=== PATIENT | female | born 1990 | race Caucasian/White ===

== ENCOUNTER 2017-10-07 01:49 | Emergency (ER) | payer BC ==
[2017-10-07] MEDS ORDERED: Ondansetron 4 MG Tab.DIS PO ONE (01:50)
[2017-10-07] MEDS ORDERED: Sodium Chloride 0.9% 1,000 ML IV ONE (02:03)
[2017-10-07] MEDS ORDERED: Ondansetron 4 MG/2 ML SDV IV ONE (02:30)
[2017-10-07 02:40] LABS: CHLORIDE,CL 106 mmol/L (101-111); SODIUM,NA 138 mmol/L (135-145)
--- NOTE | 2017-10-07 02:41 | EDM.PDOC ---
ED HPI GENERAL MEDICAL PROBLEM - General Chief Complaint: Abdominal Pain Stated Complaint: STOMACH PAIN FOR 5 DAYS [id number] Time Seen by Provider: 10/07/17 02:00 Source of Information: Reports: Patient History Limitations: Reports: No Limitations - History of Present Illness INITIAL COMMENTS - FREE TEXT/NARRATIVE: C/O epigastric upper right abdominal pain since Tuesday, nausea no vomiting, poor appetite, not eating past few days, taking fluids. No BM since Tuesday. Hx cholecystectomy 10 years ago. Notes multiple GI studies over past few years. Pain similar to previous episodes. Intermittent fever and chills. No urinary complaints. Has tried tums with some relief. Right Upper Abdomen Pain Score (Numeric/FACES): 9 - Related Data Allergies Allergy/AdvReac Type Severity Reaction Status Date / Time No Known Allergies Allergy Verified 07/01/15 18:45 Home Meds: Home Meds . [No Known Home Meds] 07/01/15 [History] Past Medical History Respiratory History: Reports: Bronchitis, Recurrent Social & Family History - Family History Family Medical History: Noncontributory - Tobacco Use Smoking Status *Q: Former Smoker Years of Tobacco use: 1 Used Tobacco, but Quit: Yes Month/Year Tobacco Last Used: 2 years ago Second Hand Smoke Exposure: Yes - Caffeine Use Caffeine Use: Reports: Soda - Alcohol Use Days Per Week of Alcohol Use: 2 Number of Drinks Per Day: 10 Total Drinks Per Week: 20 - Recreational Drug Use Recreational Drug Use: No Drug Use in Last 12 Months: No ED ROS GENERAL - Review of Systems Review Of Systems: ROS reveals no pertinent complaints other than HPI. ED EXAM, GI/ABD - Physical Exam Exam: See Below Exam Limited By: No Limitations General Appearance: Alert, No Apparent Distress Eyes: Bilateral: Normal Appearance Ears: Normal External Exam, Normal TMs Nose: Normal Inspection Throat/Mouth: Normal Inspection Head: Atraumatic, Normocephalic Neck: Normal Inspection Respiratory/Chest: No Respiratory Distress Cardiovascular: Normal Peripheral Pulses, Regular Rate, Rhythm GI/Abdominal Exam: Normal Bowel Sounds, Soft, Tender (mild epigastric) Extremities: Normal Inspection Neurological: Alert, Oriented, Normal Cognition Psychiatric: Flat Affect Skin Exam: Warm, Dry, Intact, Normal Color Course - Vital Signs Last Recorded V/S: Last Vital Signs Temp 97.3 F 10/07/17 01:56 Pulse 73 10/07/17 01:56 Resp 18 04/13/18 01:56 BP 120/65 10/07/17 01:56 Pulse Ox 97 10/07/17 01:56 - Orders/Labs/Meds Orders: Active Orders 24 hr Category Date Time Status Abdomen Pelvis w Cont [CT] Urgent Exams 10/07/17 02:59 Taken Labs: Laboratory Tests 10/07/17 10/07/17 10/07/17 Range/Units 01:54 01:54 02:15 WBC 9.6 (5.0-10.0) 10^3/uL RBC 4.47 (4.2-5.4) 10^6/uL Hgb 11.1 L (12.0-16.0) g/dL Hct 35.2 L (37.0-47.0) % MCV 78.7 L D (80-100) fL MCH 24.8 L (27.0-34.0) pg MCHC 31.5 L (33.0-35.0) g/dL Plt Count 215 (150-450) 10^3/uL Neut % (Auto) 58.5 (42.2-75.2) % Lymph % (Auto) 29.1 (20.5-50.1) % [place] % (Auto) 7.6 (2-8) % Eos % (Auto) 4.3 H (1.0-3.0) % Baso % (Auto) 0.5 (0.0-1.0) % Sodium (135-145) mmol/L Potassium (3.6-5.0) mmol/L Chloride (101-111) mmol/L Carbon Dioxide (21.0-31.0) mmol/L Anion Gap BUN (7-18) mg/dL Creatinine (0.6-1.3) mg/dL Est Cr Clr Drug Dosing mL/min Estimated GFR (MDRD) BUN/Creatinine Ratio Glucose (74-105) mg/dL Calcium (8.4-10.2) mg/dl Total Bilirubin (0.2-1.0) mg/dL AST (10-42) IU/L ALT (10-60) IU/L Alkaline Phosphatase (42-121) IU/L Total Protein (6.7-8.2) g/dl Albumin (3.2-5.5) g/dl Globulin Albumin/Globulin Ratio Amylase (28-100) U/L Lipase (22-51) U/L Urine Color Light yellow (YELLOW) Urine Appearance Clear (CLEAR) Urine pH 5.5 (5.0-9.0) Ur Specific [place] <= 1.005 (1.005-1.030) Urine Protein Negative (NEGATIVE) Urine Glucose (UA) Negative (NEGATIVE) Urine Ketones Negative (NEGATIVE) Urine Occult Blood Negative (NEGATIVE) Urine Nitrite Negative (NEGATIVE) Urine Bilirubin Negative (NEGATIVE) Urine Urobilinogen 0.2 (0.2-1.0) mg/dL Ur Leukocyte Esterase Negative (NEGATIVE) Urine RBC 0-5 /HPF Urine WBC 0-5 (0-5/HPF) /HPF Ur Epithelial Cells Rare /HPF Urine Bacteria Rare (0-FEW/HPF) /HPF Urine HCG, Qual Negative 10/07/17 Range/Units 02:15 WBC (5.0-10.0) 10^3/uL RBC (4.2-5.4) 10^6/uL Hgb (12.0-16.0) g/dL Hct (37.0-47.0) % MCV (80-100) fL MCH (27.0-34.0) pg MCHC (33.0-35.0) g/dL Plt Count (150-450) 10^3/uL Neut % (Auto) (42.2-75.2) % Lymph % (Auto) (20.5-50.1) % [place] % (Auto) (2-8) % Eos % (Auto) (1.0-3.0) % Baso % (Auto) (0.0-1.0) % Sodium 138 (135-145) mmol/L Potassium 3.8 (3.6-5.0) mmol/L Chloride 106 (101-111) mmol/L Carbon Dioxide 24.0 (21.0-31.0) mmol/L Anion Gap 11.8 BUN 9 (7-18) mg/dL Creatinine 0.5 L (0.6-1.3) mg/dL Est Cr Clr Drug Dosing 161.02 mL/min Estimated GFR (MDRD) > 60 BUN/Creatinine Ratio 18.00 Glucose 86 (74-105) mg/dL Calcium 9.1 (8.4-10.2) mg/dl Total Bilirubin 0.4 (0.2-1.0) mg/dL AST 18 (10-42) IU/L ALT 15 (10-60) IU/L Alkaline Phosphatase 66 (42-121) IU/L Total Protein 7.8 (6.7-8.2) g/dl Albumin 4.3 (3.2-5.5) g/dl Globulin 3.5 Albumin/Globulin Ratio 1.23 Amylase 41 (28-100) U/L Lipase 23 (22-51) U/L Urine Color (YELLOW) Urine Appearance (CLEAR) Urine pH (5.0-9.0) Ur Specific [place] (1.005-1.030) Urine Protein (NEGATIVE) Urine Glucose (UA) (NEGATIVE) Urine Ketones (NEGATIVE) Urine Occult Blood (NEGATIVE) Urine Nitrite (NEGATIVE) Urine Bilirubin (NEGATIVE) Urine Urobilinogen (0.2-1.0) mg/dL Ur Leukocyte Esterase (NEGATIVE) Urine RBC /HPF Urine WBC (0-5/HPF) /HPF Ur Epithelial Cells /HPF Urine Bacteria (0-FEW/HPF) /HPF Urine HCG, Qual Meds: Medications Discontinued Medications Generic Name Dose Route Start Last Admin Trade Name Freq PRN Reason Stop Dose Admin Famotidine 20 mg 10/07/17 02:30 10/07/17 02:36 Pepcid IVPUSH 10/07/17 02:31 20 mg ONETIME ONE Administration Sodium Chloride 1,000 mls @ 999 mls/hr 10/07/17 02:03 10/07/17 02:23 Normal Saline IV 10/07/17 03:03 999 mls/hr .BOLUS ONE Administration Iopamidol 100 ml 10/07/17 03:01 Isovue-300 (61%) IVPUSH 10/07/17 03:02 ONETIME ONE Ondansetron HCl 4 mg 10/07/17 02:30 10/07/17 02:35 Zofran IV 10/07/17 02:31 4 mg ONETIME ONE Administration - Radiology Interpretation Free Text/Narrative:: CT abdomen negative with exception of 17mm left ovarian cyst Departure - Departure Time of Disposition: 04:21 Disposition: Home, Self-Care 01 Condition: Good Clinical Impression: Nausea Abdominal pain Qualifiers: Abdominal location: right upper quadrant Qualified Code(s): R10.11 - Right upper quadrant pain - Discharge Information Instructions: Nausea, Adult Forms: ED Department Discharge Additional Instructions: zofran ODT 4m dior every 4 hours as needed for nausea light diet follow up with primary care if no improvement bland diet OTC zantac 150mg 2 times daily - My Orders Last 24 Hours: My Active Orders 10/07/17 02:59 Abdomen Pelvis w Cont [CT] Urgent - Assessment/Plan Last 24 Hours: My Active Orders 10/07/17 02:59 Abdomen Pelvis w Cont [CT] Urgent
[2017-10-07] MEDS ORDERED: Iopamidol 612 MG/ML 100 ML Bottle IVPUSH ONE (03:01)
[2017-10-07] MEDS ORDERED: Ondansetron 4 MG Tab.DIS ONE (04:27)
[2017-10-07 04:41] VITALS: BP 124/74
== END 2017-10-07 04:36 | disposition home or self-care (01) ==
LOC: DL.ED 01:49
DX: R10.11 Right upper quadrant pain (principal); R11.0 Nausea; Z87.891 Personal history of nicotine dependence
CPT/HCPCS: 36415; 74177; 80053; 81001; 81025; 82150; 83690; 85025; 96365; 96375; 99284; J2405; J3490; J7030; Q9967; A9270-GY

== ENCOUNTER 2018-01-04 00:36 | Emergency (ER) | payer BC ==
[2018-01-04 00:45] VITALS: BP 130/77
[2018-01-04] MEDS ORDERED: Ibuprofen 600 MG Tab PO ONE (02:06)
--- NOTE | 2018-01-04 02:06 | EDM.PDOC ---
ED HPI GENERAL MEDICAL PROBLEM - General Chief Complaint: Lower Extremity Injury/Pain Stated Complaint: R ANKLE PAIN [id number] Time Seen by Provider: 01/04/18 01:59 Source of Information: Reports: Patient History Limitations: Reports: No Limitations - History of Present Illness INITIAL COMMENTS - FREE TEXT/NARRATIVE: Original injury in June and was seen in clinic by Dr. Cabello, told if not improving to be seen in August, did not follow up. This week more discomfort, no new injury. No tylenol or ibuprofen today. 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 [No Known Home Meds] 07/01/15 [History] Past Medical History HEENT History: Reports: None Cardiovascular History: Reports: None Respiratory History: Reports: Bronchitis, Recurrent Gastrointestinal History: Reports: None Genitourinary History: Reports: None COMPTOMETRIST History: Reports: None Musculoskeletal History: Reports: None Neurological History: Reports: None Psychiatric History: Reports: None Endocrine/Metabolic History: Reports: None Hematologic History: Reports: None Immunologic History: Reports: None Oncologic (Cancer) History: Reports: None Dermatologic History: Reports: None - Past Surgical History GI Surgical History: Reports: Cholecystectomy Social & Family History - Family History Family Medical History: Noncontributory - Tobacco Use Smoking Status *Q: Never Smoker - Caffeine Use Caffeine Use: Reports: Soda - Recreational Drug Use Recreational Drug Use: No Review of Systems - Review of Systems Review Of Systems: ROS reveals no pertinent complaints other than HPI. ED EXAM, GENERAL - Physical Exam Exam: See Below Exam Limited By: No Limitations General Appearance: Alert, No Apparent Distress Eye Exam: Bilateral Eye: EOMI Ears: Hearing Grossly Normal Throat/Mouth: Normal Voice Respiratory/Chest: No Respiratory Distress Cardiovascular: Normal Peripheral Pulses, Regular Rate, Rhythm Extremities: Normal Range of Motion, Other (mild lateral ankle swelling, full ROM minimal tenderness with inversion. Mild intermittent crepitus lateral posterior ankle). No: Limited Range of Motion Neurological: Alert, Oriented, Normal Cognition Psychiatric: Normal Affect Skin Exam: Dry, Intact. No: Ecchymosis Course - Vital Signs Last Recorded V/S: Last Vital Signs Temp 98 F 01/04/18 00:41 Pulse 75 01/04/18 00:41 Resp 18 01/04/18 00:41 BP 130/77 01/04/18 00:41 Pulse Ox 98 01/04/18 00:41 - Orders/Labs/Meds Meds: Medications Discontinued Medications Generic Name Dose Route Start Last Admin Trade Name Janki PRN Reason Stop Dose Admin Ibuprofen 600 mg 01/04/18 02:06 01/04/18 02:11 Motrin PO 01/04/18 02:07 600 mg ONETIME ONE Administration Departure - Departure Time of Disposition: 02:07 Disposition: Home, Self-Care 01 Condition: Good Clinical Impression: Ankle pain, left Qualifiers: Chronicity: chronic Qualified Code(s): M25.572 - Pain in left ankle and joints of left foot - Discharge Information Instructions: Ankle Pain Referrals: PCP,Unobtain [Primary Care Provider] - Forms: ED Department Discharge Additional Instructions: ibuprofen 600mg alternate with tylenol 650mg every 4 hours as needed for discomfort clinic followup this week with Dr. Irineo crane when possible [place]
== END 2018-01-04 02:17 | disposition home or self-care (01) ==
LOC: DL.ED 00:36
DX: M25.572 Pain in left ankle and joints of left foot (principal)
CPT/HCPCS: 99283; A9270

== ENCOUNTER 2018-12-02 23:12 | Emergency (ER) | payer BC, MEDICAID ==
[2018-12-02 23:20] VITALS: BP 132/82
[2018-12-02] MEDS ORDERED: Sodium Chloride 0.9% 1,000 ML IV ONE (23:49)
--- NOTE | 2018-12-02 23:56 | EDM.PDOC ---
ED HPI GENERAL MEDICAL PROBLEM - General Chief Complaint: Chest Pain Stated Complaint: SOB/CHEST PAINS/THROWING UP [id number] Time Seen by Provider: 12/02/18 23:51 Source of Information: Reports: Patient History Limitations: Reports: No Limitations - History of Present Illness INITIAL COMMENTS - FREE TEXT/NARRATIVE: This 28 yo female patient reports to the ED with a 3 day history of lightheadedness, nausea/vomiting that started this morning and chest pain that started this morning. The patient reports her chest pain feels like someone is sitting on her chest. The patient reports she is currently 32 weeks with her first . The patient reports she has had a non-eventful other than being low in iron. The patient reports she did see her primary care provider yesterday, but did not mention any of her current symptoms. The patient reports she has had a cough for the past 3-4 days producing some phlegm. The patient reports she has been having some abdominal cramping and what she believes to be jackie hics contractions. The patient reports she vomited 5 times today so far. Onset: Today (chest pain, nausea and vomiting) Duration: Day(s): (3 days of increased cough, intermittent dizziness) Location: Reports: Chest, Abdomen Quality: Reports: Pressure Severity: Moderate Improves with: Reports: None Worsens with: Reports: None Associated Symptoms: Reports: Chest Pain, Cough, Nausea/Vomiting Chest Pain Score (Numeric/FACES): 8 - Related Data Allergies Allergy/AdvReac Type Severity Reaction Status Date / Time No Known Allergies Allergy Verified 12/02/18 23:18 Home Meds: Home Meds Comb No.42/Folic Acid [Prena1 Chew Tablet] 1 tab PO DAILY 12/02/18 [ History] Past Medical History HEENT History: Reports: None Cardiovascular History: Reports: None Respiratory History: Reports: Bronchitis, Recurrent Gastrointestinal History: Reports: None Genitourinary History: Reports: None 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 Musculoskeletal History: Reports: None Neurological History: Reports: None Psychiatric History: Reports: None Endocrine/Metabolic History: Reports: None Hematologic History: Reports: None Immunologic History: Reports: None Oncologic (Cancer) History: Reports: None Dermatologic History: Reports: None - Past Surgical History HEENT Surgical History: Reports: Oral Surgery GI Surgical History: Reports: Cholecystectomy Social & Family History - Family History Family Medical History: Noncontributory - Tobacco Use Smoking Status *Q: Never Smoker - Caffeine Use Caffeine Use: Reports: Soda - Recreational Drug Use Recreational Drug Use: No ED ROS GENERAL - Review of Systems Review Of Systems: ROS reveals no pertinent complaints other than HPI. ED EXAM, GENERAL - Physical Exam Exam: See Below Exam Limited By: No Limitations General Appearance: Alert, WD/WN, Mild Distress Eye Exam: Bilateral Eye: EOMI, Normal Inspection, PERRL Ears: Normal External Exam, Normal Canal, Hearing Grossly Normal, Normal TMs Nose: Normal Inspection, Normal Mucosa, No Blood Throat/Mouth: Normal Inspection, Normal Lips, Normal Teeth, Normal Gums, Normal Oropharynx, Normal Voice, No Airway Compromise Head: Atraumatic, Normocephalic Neck: Normal Inspection, Supple, Non-Tender, Full Range of Motion Respiratory/Chest: No Respiratory Distress, Lungs Clear, Normal Breath Sounds, No Accessory Muscle Use, Chest Non-Tender Cardiovascular: Normal Peripheral Pulses, Regular Rate, Rhythm, No Edema, No Gallop, No JVD, No Murmur, No Rub GI/Abdominal: Normal Bowel Sounds, Soft, Non-Tender, No Organomegaly, No Abnormal Bruit, No Mass (Female) Exam: Deferred Rectal (Female) Exam: Deferred Back Exam: Normal Inspection, Full Range of Motion, NT Extremities: Normal Inspection, Normal Range of Motion, Non-Tender, Normal Capillary Refill, No Pedal Edema Neurological: Alert, Oriented, CN II-XII Intact, Normal Cognition, Normal Gait, Normal Reflexes, No Motor/Sensory Deficits Psychiatric: Normal Affect, Normal Mood Skin Exam: Warm, Dry, Intact, Normal Color, No Rash Lymphatic: No Adenopathy Course - Vital Signs Last Recorded V/S: Last Vital Signs Temp 36.7 C 12/02/18 23:18 Pulse 68 12/02/18 23:18 Resp 19 12/02/18 23:18 BP 132/82 12/02/18 23:18 Pulse Ox 99 12/02/18 23:18 - Orders/Labs/Meds Orders: Active Orders 24 hr Category Date Time Status EKG Documentation Completion [RC] URGENT Care 12/02/18 23:50 Active CULTURE URINE [RM] Routine Lab 12/02/18 23:53 Received Labs: Laboratory Tests 12/02/18 12/02/18 12/02/18 Range/Units 23:26 23:26 23:53 WBC 12.5 H (5.0-10.0) 10^3/uL RBC 3.60 L (4.2-5.4) 10^6/uL Hgb 10.1 L (12.0-16.0) g/dL Hct 30.8 L (37.0-47.0) % MCV 85.6 D (80-100) fL MCH 28.1 (27.0-34.0) pg MCHC 32.8 L (33.0-35.0) g/dL Plt Count 199 (150-450) 10^3/uL Neut % (Auto) 70.5 (42.2-75.2) % Lymph % (Auto) 17.9 L (20.5-50.1) % [place] % (Auto) 9.6 H (2-8) % Eos % (Auto) 1.8 (1.0-3.0) % Baso % (Auto) 0.2 (0.0-1.0) % Add Manual Diff Yes Neutrophils % (Manual) 67 (42-75) % Band Neutrophils % 4 % Lymphocytes % (Manual) 22 (20-50) % Monocytes % (Manual) 6 (2-8) % Eosinophils % (Manual) 1 (1-3) % Sodium 134 L (135-145) mmol/L Potassium 3.7 (3.6-5.0) mmol/L Chloride 106 (101-111) mmol/L Carbon Dioxide 19.0 L (21.0-31.0) mmol/L Anion Gap 12.7 BUN 7 (7-18) mg/dL Creatinine 0.4 L (0.6-1.3) mg/dL Est Cr Clr Drug Dosing 199.52 mL/min Estimated GFR (MDRD) > 60 BUN/Creatinine Ratio 17.50 Glucose 80 (74-105) mg/dL Calcium 8.7 (8.4-10.2) mg/dl Total Bilirubin 0.3 (0.2-1.0) mg/dL AST 22 (10-42) IU/L ALT 14 (10-60) IU/L Alkaline Phosphatase 91 (42-121) IU/L Troponin I < 0.02 (0.00-0.02) ng/ml Total Protein 6.9 (6.7-8.2) g/dl Albumin 2.8 L (3.2-5.5) g/dl Globulin 4.1 Albumin/Globulin Ratio 0.68 Urine Color Yellow (YELLOW) Urine Appearance Cloudy (CLEAR) Urine pH 8.5 (5.0-9.0) Ur Specific [place] 1.015 (1.005-1.030) Urine Protein Negative (NEGATIVE) Urine Glucose (UA) Negative (NEGATIVE) Urine Ketones Negative (NEGATIVE) Urine Occult Blood Trace-intact H (NEGATIVE) Urine Nitrite Negative (NEGATIVE) Urine Bilirubin Negative (NEGATIVE) Urine Urobilinogen 0.2 (0.2-1.0) mg/dL Ur Leukocyte Esterase Moderate H (NEGATIVE) Urine RBC 5-10 H /HPF Urine WBC >100 H (0-5/HPF) /HPF Ur Epithelial Cells Moderate H (NOT SEEN) /HPF Amorphous Sediment Few (NOT SEEN) /HPF Urine Bacteria Many H (0-FEW/HPF) /HPF Urine Mucus Rare (NOT SEEN) /LPF Meds: Medications Discontinued Medications Generic Name Dose Route Start Last Admin Trade Name Rileyq PRN Reason Stop Dose Admin Sodium Chloride 1,000 mls @ 999 mls/hr 12/02/18 23:49 12/02/18 23:55 Normal Saline IV 12/03/18 00:49 999 mls/hr .BOLUS ONE Administration Ondansetron HCl 4 mg 12/03/18 00:03 12/03/18 00:09 Zofran IV 12/03/18 00:04 4 mg ONETIME ONE Administration Departure - Departure Time of Disposition: 01:19 Disposition: Home, Self-Care 01 Condition: Fair Clinical Impression: Nausea and vomiting during , Nonspecific chest pain - Discharge Information *PRESCRIPTION DRUG MONITORING PROGRAM REVIEWED*: Not Applicable *COPY OF PRESCRIPTION DRUG MONITORING REPORT IN PATIENT SHAYY: Not Applicable Referrals: Nolvia Kaminski MD [Physician] - Forms: ED Department Discharge Care Plan Goals: The patient was advised of the examination, lab, and EKG results while in the emergency department. The patient was sent to OB for continued evaluation due to being in her 32nd week of her current . - My Orders Last 24 Hours: My Active Orders 12/02/18 23:50 EKG Documentation Completion [RC] URGENT 12/02/18 23:53 CULTURE URINE [RM] Routine - Assessment/Plan Last 24 Hours: My Active Orders 12/02/18 23:50 EKG Documentation Completion [RC] URGENT 12/02/18 23:53 CULTURE URINE [RM] Routine
[2018-12-03] MEDS ORDERED: Ondansetron 4 MG/2 ML SDV IV ONE (00:03)
[2018-12-03 00:08] LABS: ANION GAP 12.7; CHLORIDE,CL 106 mmol/L (101-111); SODIUM,NA 134 mmol/L (135-145)
== END 2018-12-03 00:50 | disposition home or self-care (01) ==
LOC: DL.ED 23:12
DX: O21.9 Vomiting of pregnancy, unspecified (principal); O99.89 Other specified diseases and conditions complicating pregnancy, childbirth and the puerperium; R07.9 Chest pain, unspecified; Z3A.32 32 weeks gestation of pregnancy
CPT/HCPCS: 36415; 80053; 81001; 84484; 85025; 87086; 93005; 96361; 96374; 99285; J2405; J7030

== ENCOUNTER 2018-12-03 00:59 | Observation (INO) | payer MEDICAID ==
[2018-12-03] MEDS ORDERED: Aluminum Hydroxide/Magnesium Hydroxide/Simethicone Susp 30 ML Cup PO ONE (01:28)
[2018-12-03] MEDS ORDERED: Acetaminophen 325 MG Tab PO ONE (01:30)
[2018-12-03] MEDS ORDERED: hydrOXYzine HCl 25 MG Tab PO ONE (01:30)
[2018-12-03] MEDS ORDERED: Ondansetron 4 MG/2 ML SDV IV PRN (01:34)
[2018-12-03] MEDS ORDERED: Nitrofurantoin Monohydrate/Macrocrystalline 100 MG Cap PO STA (09:26)
[2018-12-03 10:30] VITALS: BP 102/63
--- NOTE | 2018-12-03 11:34 | DISCH ---
Admitted for observation on 12/03/2018, discharged home 12/03/2018. HISTORY: Please see my dictated history and physical. The patient is seen on rounds this morning and her symptoms are much better. She denies any headache this morning. She did have good movement last night and slightly less movement today. She is no longer vomiting presently. She denies all urinary symptoms and we are going to begin Macrobid, however, for her UTI. She has had a fairly decent night of rest. She does have a slight degree of retrosternal and epigastric discomfort and the symptoms are better than before. Her slight cough that she has had intermittently for several weeks is perhaps slightly better. PHYSICAL EXAMINATION: Vital Signs: Her vital signs today revealed that she is afebrile with temperature of 97.8, blood pressure 102/63, pulse 68. Lungs: Clear to A. Abdomen: Slightly tender as before in the epigastric area. There is negative CVA tenderness. She is not having any uterine contractions that she is aware of. HOSPITAL COURSE: The patient has been observed closely during the night. She did receive Mylanta p.o. last night as well as Zantac 150 mg p.o. She would like to stay with this regimen since Prilosec has not helped her before she claims. Indeed, she does have a past history of GERD. Cardiac disease or pathology was ruled out in the emergency room last night by their evaluation. It has been felt, as mentioned above, that possibly the patient could have a mild viral syndrome. Please see her admission lab work, which did reveal the abnormal urinalysis as well as slight lymphopenia. The patient does have urinary tract infection as mentioned above. We have given the patient the option of further observation today or also the other option of going home after she has had lunch today at noon. She has already tolerated her breakfast this morning. The patient chooses to go home early this afternoon after lunch. I have encouraged her to keep me closely informed if any symptoms seem to persist, change, or worsen. She will also keep her next appointment with Dr. Kaminski on 12/15/2018 or before that time if necessary. I have told her that I will be on-call today as well as tomorrow and tomorrow night and to please call if questions or problems. DISCHARGE MEDICATIONS: Consist of Zantac 150 mg p.o. b.i.d., Mylanta 30 mL p.o. p.r.n., Zofran 4 mg 1 p.o. every 6 hours p.r.n. nausea and vomiting, Macrobid 100 mg p.o. b.i.d. x1 week or until finished. DISCHARGE INSTRUCTIONS: She will also elevate the head of her bed at home and we did thoroughly discuss the diet and nutritional measures that should be utilized with GERD. We do encourage the left lateral recumbent position when she is lying down. Also, she will try to avoid other acid-producing substances nutritionally. CONDITION: Good at the time of discharge. [facility] /[id number]
--- NOTE | 2018-12-03 13:27 | HP ---
HISTORY OF PRESENT ILLNESS: This patient is a 28-year-old, 1, para 0 patient, currently at 32 weeks' 3 days gestation. She was admitted for observation early this morning. The patient initially went to the emergency room complaining of retrosternal chest pain and had vomited about 4 to 5 times during the preceding 24 hours. She initially was evaluated and her EKG and troponin I was negative and myocardial infarction was ruled out. Her urinalysis in the emergency room revealed multiple wbc's per high-powered field. I have ordered urine culture on her and presumably she has urinary tract infection and we will begin Macrobid on her shortly. The patient came over to Labor and Delivery for further evaluation of course. The patient also complains of headache and does have fairly good movement. However, once in a while, she does feel a mild contraction about every 15 minutes in the uterine area. She actually denies all urinary symptoms as such. She does state that she did have chills about 2 days ago, but denies any knowledge of fever. Review of her records, and the patient is followed by Dr. Kaminski, she did have an episode on November 13, where she was having a slight intermittent cough as well as some possible chills and/or myalgias and it was felt that maybe the patient had an upper respiratory infection or bronchitis. The patient states that she did get better and her symptoms lessened from that episode, but she still feels a slight degree of those symptoms and thinks that she is not completely healed from that possible URI. Currently, she still has an occasional slight productive cough. She denies any pain in the upper back or thoracic area. As mentioned above, she denies fever. Please see below regarding her gastroesophageal reflux disease history. Also, the patient has not been on any antacids during this . She denies dyspepsia itself, but does admit to retrosternal chest pressure sensations. She did take Prilosec at one time as ordered by Dr. Gregory, but she states that did not help her, and this was a couple of years ago when she had her last upper GI endoscopy. PAST MEDICAL HISTORY: She denies any knowledge of heart, lung, liver or kidney disease. ALLERGIES: None known. PAST SURGICAL HISTORY: Previous surgery consists of cholecystectomy, and T and A, and 2 prior upper GI endoscopies, the last being several years ago. She was told by the GI specialist that she did have gastroesophageal reflux disease. FAMILY HISTORY: One grandmother had atrial fibrillation in advanced age and a history of hypertension. 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 She is a nonsmoker and does not use alcohol or street drugs. PHYSICAL EXAMINATION: Vital Signs: Blood pressure 102/63, pulse 68, temperature 97.8. HEENT: There is no icterus of the sclerae. There is no yellowing or jaundice of the skin. Her extraocular movements are full. Lungs: Clear to A. Heart: Regular rhythm without any murmur detected. Abdomen: Slightly tender in the epigastrium. There is no tenderness in the left upper quadrant. There is no tenderness in the right upper quadrant. Uterine size is compatible with 32 weeks' 3 days gestation. The patient does have a reactive nonstress test. There is negative CVA tenderness and no flank tenderness on the abdomen. No uterine contractions are palpable or reported at present. Extremities: Reveal trace ankle edema. Her deep tendon reflexes are normoreflexic. IMPRESSION: Probable urinary tract infection with urine culture pending. The patient also appears to have an exacerbation of her gastroesophageal reflux disease. The patient also possibly has mild viral syndrome since I note that her WBC does show a slight lymphopenia. The remaining blood chemistry including LFTs and electrolytes were normal from the emergency room. PLAN: Macrobid 100 mg p.o. b.i.d., Zantac 150 mg p.o. b.i.d. as well as 30 mL of Mylanta p.o. at the present time. Elevate the head of the bed. We will hydrate the patient and permit diet as tolerated for breakfast. I do not believe there is any evidence for labor and we will monitor intermittently during the night. I believe that her chest and upper abdominal pain of course are symptoms of her gastroesophageal reflux disease. [facility] /[id number]
== END 2018-12-03 13:15 | disposition home or self-care (01) ==
LOC: DL.OBCHECK 00:59 → DL.MS 02:13
PROVIDERS: ADMIT Obstetrics & Gynecology; ATTEND Obstetrics & Gynecology
DX: O99.613 Diseases of the digestive system complicating pregnancy, third trimester (principal); K21.9 Gastro-esophageal reflux disease without esophagitis; O21.2 Late vomiting of pregnancy; O23.43 Unspecified infection of urinary tract in pregnancy, third trimester; O99.89 Other specified diseases and conditions complicating pregnancy, childbirth and the puerperium; R51 Headache; Z3A.32 32 weeks gestation of pregnancy
CPT/HCPCS: A9270 ×5

== ENCOUNTER 2023-05-21 15:00 | Emergency (ER) | payer BC, MEDICAID ==
[2023-05-21] MEDS ORDERED: Acetaminophen/HYDROcodone 325-5 MG Tab PO ONE (18:08)
[2023-05-21 19:30] LABS: BASOPHILS PERCENT AUTO 0.2 % (0.0-1.0); EOSINOPHILS PERCENT AUTO 0.5 % (1.0-3.0); HEMATOCRIT 35.1 % (37.0-47.0); MEAN CORPUSCULAR HEMOGLOBIN 25.5 pg (27.0-34.0); MEAN CORPUSCULAR HGB CONC 31.3 g/dL (33.0-35.0); MEAN CORPUSCULAR VOLUME 81.3 fL (80-100); MONOCYTES PERCENT AUTO 6.9 % (2-8); NEUTROPHILS PERCENT AUTO 69.4 % (42.2-75.2); PLATELET COUNT,PLT 233 10^3/uL (150-450); RED BLOOD CELL COUNT 4.32 10^6/uL (4.2-5.4); WHITE BLOOD CELL COUNT,WBC 12.9 10^3/uL (5.0-10.0)
[2023-05-21 19:52] LABS: A/G RATIO 0.9; ALBUMIN 3.5 g/dL (3.4-5.0); ANION GAP 14.4 mEq/L (7-13); BILIRUBIN TOTAL 0.3 mg/dL (0.2-1.0); BUN/CREATININE RATIO 7.8 (No establ ref range); CALCIUM 8.7 mg/dL (8.5-10.1); CREATININE 0.64 mg/dL (0.55-1.02); EST CRCL DRUG DOSING (CG) 120.32 mL/min; POTASSIUM,K 3.4 mmol/L (3.5-5.1); PROTEIN TOTAL,TP 7.2 g/dL (6.4-8.2)
[2023-05-21] MEDS ORDERED: Morphine 2 MG/ML SYRINGE IVPUSH ONE (19:54)
[2023-05-21] MEDS ORDERED: Naloxone 2 MG/2 ML Syringe IVPUSH PRN (19:54)
[2023-05-21 19:57] LABS: LACTIC ACID 0.9 mmol/L (0.4-2.0)
[2023-05-21 20:18] VITALS: BP 112/50; PULSE 53
== END 2023-05-21 20:11 | disposition home or self-care (01) ==
LOC: DL.ED 15:00
DX: G89.18 Other acute postprocedural pain (principal); R10.31 Right lower quadrant pain; D72.829 Elevated white blood cell count, unspecified; E66.9 Obesity, unspecified; Z68.34 Body mass index [BMI] 34.0-34.9, adult; Z90.49 Acquired absence of other specified parts of digestive tract; Z88.5 Allergy status to narcotic agent; Z79.899 Other long term (current) drug therapy; Z90.710 Acquired absence of both cervix and uterus
CPT/HCPCS: 36415; 80053; 83605; 85025; 96374; 99283; 99284-25; A9270-GY; J2270

== ENCOUNTER 2024-03-19 15:49 | Emergency (ER) | payer BC ==
[2024-03-19 16:08] VITALS: BP 124/76; PULSE 83
[2024-03-19] MEDS ORDERED: Sodium Chloride 0.9% 10 ML Syringe FLUSH PRN (16:13)
[2024-03-19 16:25] LABS: AMPHETAMINES,URINE NEGATIVE (NEGATIVE); APPEARANCE,URINE CLEAR (CLEAR); BARBITURATES,URINE NEGATIVE (NEGATIVE); BENZODIAZEPINE,URINE NEGATIVE (NEGATIVE); BILIRUBIN,URINE NEGATIVE (NEGATIVE); COLOR,URINE YELLOW (YELLOW); GLUCOSE,URINE NEGATIVE (NEGATIVE); KETONES,URINE NEGATIVE (NEGATIVE); LEUKOCYTE ESTERASE,URINE NEGATIVE (NEGATIVE); MDMA (ECSTASY), URINE NEGATIVE (NEGATIVE); METHADONE,URINE NEGATIVE (NEGATIVE); METHAMPHETAMINES,URINE NEGATIVE (NEGATIVE); NITRITE,URINE NEGATIVE (NEGATIVE); OCCULT BLOOD,URINE NEGATIVE (NEGATIVE); OPIATES,URINE NEGATIVE (NEGATIVE); OXYCODONE,URINE NEGATIVE (NEGATIVE); PH,URINE 5.5 (5.0-9.0); PHENCYCLIDINE,URINE NEGATIVE (NEGATIVE); PROTEIN,URINE NEGATIVE (NEGATIVE); TCA,URINE NEGATIVE (NEGATIVE); UROBILINOGEN,URINE 0.2 mg/dL (0.2-1.0)
[2024-03-19 16:39] LABS: BASOPHILS PERCENT AUTO 0.1 % (0.0-1.0); EOSINOPHILS PERCENT AUTO 2.6 % (1.0-3.0); HEMATOCRIT 38.8 % (37.0-47.0); HEMOGLOBIN 12.8 g/dL (12.0-16.0); LYMPHOCYTES PERCENT AUTO 33.6 % (20.5-50.1); MEAN CORPUSCULAR HEMOGLOBIN 28.5 pg (27.0-34.0); MEAN CORPUSCULAR VOLUME 86.4 fL (80-100); NEUTROPHILS PERCENT AUTO 55.7 % (42.2-75.2); PLATELET COUNT,PLT 206 10^3/uL (150-450); RED BLOOD CELL COUNT 4.49 10^6/uL (4.2-5.4); WHITE BLOOD CELL COUNT,WBC 7.6 10^3/uL (5.0-10.0)
[2024-03-19] MEDS: Ketorolac 30 MG/ML SDV IVPUSH ONE (17:03)
[2024-03-19 17:05] LABS: LACTIC ACID 1.1 mmol/L (0.4-2.0)
[2024-03-19 17:21] LABS: A/G RATIO 0.9; ALBUMIN 3.6 g/dL (3.4-5.0); ANION GAP 14.3 mEq/L (7-13); BILIRUBIN TOTAL 0.3 mg/dL (0.2-1.0); BUN/CREATININE RATIO 19.7 (No establ ref range); C-REACTIVE PROTEIN 0.89 ng/dL (<=0.50); CREATININE 0.66 mg/dL (0.55-1.02); EST CRCL DRUG DOSING (CG) 115.62 mL/min; MAGNESIUM 1.8 mg/dL (1.8-2.4); POTASSIUM,K 4.3 mmol/L (3.5-5.1); PROTEIN TOTAL,TP 7.6 g/dL (6.4-8.2)
[2024-03-19] MEDS: Iopamidol 612 MG/ML 100 ML Bottle IVPUSH ONE (17:25)
== END 2024-03-19 18:45 | disposition home or self-care (01) ==
LOC: DL.ED 15:49
DX: K59.00 Constipation, unspecified (principal); E66.9 Obesity, unspecified; Z68.34 Body mass index [BMI] 34.0-34.9, adult; Z90.49 Acquired absence of other specified parts of digestive tract; Z90.710 Acquired absence of both cervix and uterus; Z79.899 Other long term (current) drug therapy; Z91.048 Other nonmedicinal substance allergy status
CPT/HCPCS: 36415; 74177; 80053; 80305-QW; 81003; 82150; 83605; 83735; 85025; 86140; 96374; 99283; 99284-25; J1885; Q9967